=== PATIENT | male | born 1985 | race Caucasian/White ===

== ENCOUNTER → 2021-01-08 | Day surgery (SDC) | payer OTHER ==
[~2021-01-08] VITALS: Ht 182.9 cm; Wt 170.0 kg
[~2021-01-08] MED LIST: LIDOcaine 1% (10mg/ml) 2ml vial ONE; MULT-1085 PO; ceFAZolin inj. 3,000 MG in normal saline 100ml IV soln 100 ML IV ONE; famotidine 20mg tablet PO ONE; ringers solution, lacted 1,000 ML IV SCH
[2021-01-08 06:30] VITALS: BP 135/99
[2021-01-08 06:34] LABS: BASOPHILS % (AUTO) 0.6 % (0-1); EOSINOPHILS # (AUTO) 0.3 X10'3 (0-0.9); EOSINOPHILS % (AUTO) 4.5 % (0-6); LYMPHOCYTES # (AUTO) 1.7 X10'3 (1.1-4.8); LYMPHOCYTES % (AUTO) 26.2 % (21-51); MEAN CORPUSCULAR HEMOGLOBIN 31.1 PG (27.0-31.0); MEAN CORPUSCULAR HGB CONC 33.7 g/dL (33.0-36.5); MEAN CORPUSCULAR VOLUME 92.4 FL (78-98); MEAN PLATELET VOLUME 8.1 FL (7.4-10.4); MONOCYTES # (AUTO) 0.5 X10'3 (0-0.9); MONOCYTES % (AUTO) 7.8 % (2-12); NEUTROPHILS # (AUTO) 3.9 X10'3 (1.8-7.7); NEUTROPHILS % (AUTO) 60.9 % (42-75); PRE OP HEMATOCRIT 43.4 % (42.0-52.0); PRE OP HEMOGLOBIN 14.6 g/dL (14.0-17.9); PRE OP PLATELET COUNT 231 X10'3 (140-440); RED CELL DISTRIBUTION WIDTH 13.7 % (11.5-14.5)
[2021-01-08 06:47] LABS: ALBUMIN 3.8 G/DL (3.4-5.0); ALBUMIN/GLOBULIN RATIO 1.1 (1.1-1.5); ALKALINE PHOSPHATASE 45 IU/L (46-116); BLOOD UREA NITROGEN 17 MG/DL (7-18); CALCIUM 8.8 MG/DL (8.5-10.1); CHLORIDE 102 MMOL/L (99-107); CREATININE 1.06 MG/DL (0.60-1.10); PRE OP ANION GAP 11 (8-16); PRE OP AST 58 U/L (10-37); PRE OP BILIRUB, TOTAL 0.3 MG/DL (0.0-1.0); PRE OP POTASSIUM 4.3 MMOL/L (3.4-5.1); PRE OP SODIUM 138 MMOL/L (135-145); TOTAL CARBON DIOXIDE 24.8 MMOL/L (24-32); TOTAL PROTEIN 7.2 G/DL (6.4-8.2); eGFR 80 ML/MIN
[2021-01-08 06:53] LABS: PRE OP GLUCOSE 333 MG/DL (70-104)
--- NOTE | 2021-01-08 07:02 | NUR ---
BG 333, SPOKE WITH DR RODRIGUES AND HE AND DR HAYES DECIDED TO CANCEL SURGERY DUE TO NEW ONSET DIABETIC. PATIENT INFORMED AND TOLD TO VISIT HIS MD AT HOME
[2021-01-08 07:42] LABS: HEMOGLOBIN A1C 10.2 % (4.5-6.2)
[2021-01-08 08:58] LABS: PRE OP ALT 151 U/L (30-65)
== END | disposition home or self-care (01) ==
LOC: PAS 05:28
PROVIDERS: ATTEND Podiatrist Foot & Ankle Surgery
DX: M19.072 Primary osteoarthritis, left ankle and foot (principal); Z53.8 Procedure and treatment not carried out for other reasons; E11.9 Type 2 diabetes mellitus without complications; M25.472 Effusion, left ankle; M25.375 Other instability, left foot; G47.30 Sleep apnea, unspecified; E66.9 Obesity, unspecified; Z68.43 Body mass index [BMI] 50.0-59.9, adult; Z20.822 Contact with and (suspected) exposure to COVID-19; Z79.899 Other long term (current) drug therapy; Z87.891 Personal history of nicotine dependence; Z72.89 Other problems related to lifestyle; Z79.82 Long term (current) use of aspirin
CPT/HCPCS: 80053; 82948; 83036; 85025; 87426; 93005; J0690; J2001; J7120